=== PATIENT | female | born 1985 | race Caucasian/White ===

== ENCOUNTER 2021-10-12 07:07 | Day surgery (SDC) | payer MEDICAID ==
[~2021-10-12] VITALS: Ht 160 cm; Wt 75.7 kg
[2021-10-12] VITALS (13 sets, daily range): BP systolic 81–128; BP diastolic 40–78
[2021-10-12] MEDS ORDERED: normal saline 1000ml 1,000 ML IV PRN (07:25)
[2021-10-12] MEDS ORDERED: LIDOcaine 1%/PF 5ML 10 MG/ML VIAL ONE (07:53)
[2021-10-12] MEDS ORDERED: fentaNYL/PF 50MCG/1 ML 2ML syringe ONE ×2 (07:53→09:08)
[2021-10-12] MEDS ORDERED: midazolam 1 mg/ML 2ml injection ONE ×2 (07:53→08:57)
[2021-10-12] MEDS ORDERED: heparin sodium, porcine/PF 100unit/ml 5ML syringe ONE (07:53)
[2021-10-12] MEDS ORDERED: diphenhydrAMINE 50 mg/ml inj ONE (09:18)
== END 2021-10-12 12:40 | disposition home or self-care (01) ==
LOC: SSTAY O 07:07
PROVIDERS: ATTEND Radiology Diagnostic Radiology
DX: C50.011 Malignant neoplasm of nipple and areola, right female breast (principal); J45.909 Unspecified asthma, uncomplicated; F17.290 Nicotine dependence, other tobacco product, uncomplicated; Z88.5 Allergy status to narcotic agent; Z79.899 Other long term (current) drug therapy
CPT/HCPCS: 36561; 76937; 77001; 99152; 99153; C1769; C1788; C1894; J1200; J1642; J2250; J3010; J3490